=== PATIENT | male | born 1950 | race Caucasian/White ===

== ENCOUNTER → 2018-03-07 | Outpatient (CLI) | payer MEDICARE, OTHER ==
[~2018-03-07] MED LIST: 5-HY50CA3 PO; ALLERGY INJECTIONS; ASCO-182 PO; AZIT-1 PO; B CO PO; CITA-128 PO; DIAZIDE PO; FEXO180T74 PO; FLAX100042 PO; HYD10 PO; HYDR-317 PO; HYDR12.561 PO; INDO-1 PO; INDO50CA92 PO; KET10 PO; LAMO50TA PO; LEV137 PO; LEVO150T72 PO; MAGN250T26 PO; METH4TAB66 PO; MULT-1 PO; OXYGEN INH; PAN40 PO; PER PO; POTA2.5T7 PO; POTA75TA PO; PSYP PO; TES5T TD; TES75PMPPT TD; TEST2.5G6 TD; TRIA1CAP86 PO; [UNRECOGNIZED DRUG - CODE] PO; [UNRECOGNIZED DRUG - CODE] PO
== END ==
LOC: RESP 20:02
PROVIDERS: ATTEND Family Medicine
DX: G47.33 Obstructive sleep apnea (adult) (pediatric) (principal); G47.61 Periodic limb movement disorder; G47.36 Sleep related hypoventilation in conditions classified elsewhere; E66.9 Obesity, unspecified

== ENCOUNTER 2018-04-21 14:25 | Outpatient (RCR) | payer MEDICARE, OTHER ==
[~2018-04-21 14:25] MED LIST changes: +INDO-23 PO; -INDO50CA92 PO
[2018-04-21 14:54] VITALS: BP 132/63
== END 2018-05-13 11:17 | disposition home or self-care (01) ==
LOC: SPU 14:25
DX: E29.1 Testicular hypofunction (principal)
CPT/HCPCS: 85014; 99195

== ENCOUNTER → 2018-10-12 | Outpatient (CLI) | payer MEDICARE, OTHER ==
[~2018-10-12] MED LIST changes: +FERR325T24 PO
== END ==
LOC: LAB 13:51
PROVIDERS: ATTEND Urology
DX: Z00.00 Encounter for general adult medical examination without abnormal findings (principal); N40.1 Benign prostatic hyperplasia with lower urinary tract symptoms
CPT/HCPCS: 36415; 84153

== ENCOUNTER 2018-11-19 11:03 | Inpatient (IN) | payer MEDICARE, OTHER ==
[~2018-11-19] VITALS: Ht 177.8 cm; Wt 121.6 kg
[2018-11-19] MEDS ORDERED: methylPREDNIS SUCC 125 MG/2ML IVP ONE (11:15)
[2018-11-19] MEDS ORDERED: FAMOTIDINE(*) 20MG/50ML PREMIX 50 ML IVPB ONE (11:15)
[2018-11-19] MEDS ORDERED: diphenhydrAMINE 50 MG/ML VIAL IVP ONE (11:15)
[2018-11-19] MEDS ORDERED: EPINEPHrine 0.3 MG SYR IM ONLY ONE (11:15)
--- NOTE | 2018-11-19 11:21 | ER Report ---
History and Physical Time Seen By MD: 11:10 Hx. of Stated Complaint: PATIENT REPORTS SWELLING OF THE LIPS AND TONGUE THAT STARTED THIS MORNING. [facility] AND WAS TOLD TO COME HERE. HAS SOME TROUBLE BREATHING AND SWALLOWING. HPI/ROS CHIEF COMPLAINT: Angioedema facial swelling HISTORY OF PRESENT ILLNESS: 68-year-old male comes in the emergency department sent here from urgent care with what appears to either be an acute allergic reaction or angioedema. Patient is had numerous episodes similar in the past month he's had 4 separate episodes but he said this is significantly worse. Patient is able to swallow saliva at this time says is able to breathe okay but is having marked swelling of the oral mucosa and around the tongue and the pharyngeal area. Patient states that he's been through allergy testing with no obvious or apparent allergic source. Patient states that he went to the primary care office after the initial incident incident and subsequently been having follow-up in with little to no benefit has been seen by ENT. On arrival to the emergency department he's had obvious swelling of the oral mucosal lips and the pharyngeal area primarily in the lips and oral mucosa consistent with a probable angioedema. Patient has no additional complaints this time REVIEW OF SYSTEMS: Respiratory: No cough, no dyspnea. Cardiovascular: No chest pain, no palpitations. Gastrointestinal: No vomiting, no abdominal pain. Musculoskeletal: No back pain. Remainder of the 14 system rev: Yes Allergies: Coded Allergies: Iodinated Contrast Media - IV Dye (Unverified Allergy, Severe, SWELLING, EXTREME HAYFEVER SYMPTOMS, 09/16/16) codeine (Verified Allergy, Severe, 09/16/16) homeopathic drugs (Verified Allergy, Intermediate, 09/16/16) ofloxacin (Verified Allergy, Mild, DIZZY, 09/16/16) Uncoded Allergies: hayfever (Allergy, Intermediate, UNKNOWN, 03/19/12) Home Meds Reported Medications Testosterone (ANDROGEL) 75 Gm Gel, 75 GM TD, GEL 07/20/16 Magnesium (MAGNESIUM) 250 Mg Tablet, 500 MG PO DAILY 04/19/14 Multivitamin W/Iron, Minerals (MULTIVITAMINS WITH IRON) 1 Each Tab.chew, 1 EACH PO DAILY, TAB.CHEW 04/19/14 Ascorbic Acid (VITAMIN C) 500 Mg Tablet, 500 MG PO DAILY 04/19/14 Hydrochlorothiazide (HYDROCHLOROTHIAZIDE) 12.5 Mg Tablet, 1 TAB PO QDAY TAKE ONE TABLET BY MOUTH EVERY DAY 04/19/14 Lamotrigine (LAMOTRIGINE) 50 Mg Tab.er.24, 100 MG PO QDAY 12/08/12 Citalopram Hydrobromide (Citalopram Hbr) 20 Mg Tablet, 30 MG PO QDAY 12/07/12 Levothyroxine Sodium (Synthroid/Levothroid) 0.137 Mg Tab, 0.137 MG PO QDAY 12/07/12 Oxygen (Oxygen) 2 L Inha, 2 L INH QHS, 0 Refills WEARS WITH CPAP AT 8CM PRESSURE AT NOC 01/02/10 Hydrocortisone (Hydrocortisone) 10 Mg Tablet, 30 MG PO QAM, 0 Refills 01/02/10 Pantoprazole Sod (Protonix) 40 Mg Tabec, 40 MG PO QDAY, 0 Refills 01/27/09 Discontinued Reported Medications Ferrous Sulfate (IRON) Unknown Strength Tablet, PO 05/21/18 Reviewed Nurses Notes: Yes Old Medical Records Reviewed: Yes Hx Smoking: Yes (7 year stopped in 1984) Smoking Status: Former Smoker Exposure to Second Hand Smoke?: No Hx Substance Use Disorder: No Hx Alcohol Use: No Constitutional Vital Sign - Last 24 Hours 11/19/18 11/19/18 11/19/18 11/19/18 11:08 11:09 11:15 11:18 Pulse 95 92 Resp 16 14 B/P (MAP) 125/79 125/79 (94) 108/46 (66) Pulse Ox 92 89 O2 Delivery Room Air 11/19/18 11/19/18 11:27 11:30 B/P (MAP) 111/56 (74) O2 Flow Rate 2.0 Physical Exam General Appearance: [The patient is alert, has no immediate need for airway protection and no current signs of toxicity.] Able to protect his airway but obvious swelling on the oral mucosa Eyes: Pupils equal and round no injection. Respiratory: Chest is non tender, lungs are clear to auscultation. Cardiac: regular rate and rhythm [ ] Gastrointestinal: Abdomen is soft and non tender, no masses, bowel sounds normal. Musculoskeletal: Neck: Neck is supple and non tender. Extremities have full range of motion and are non tender. Skin: Facial swelling edema left greater than right premolar on the oropharynx no the nasolabial fold area swelling of the tongue is also noted. [ ] DIFFERENTIAL DIAGNOSIS: After history and physical exam differential diagnosis was considered for acute allergic reaction versus angioedema Medical Decision Making Data Points Result Diagram: 11/19/18 1110 11/19/18 1110 Laboratory Hematology Test 11/19/18 11:10 Red Blood Count 6.06 M/uL (4.00-5.60) Mean Corpuscular Volume 89.0 fL (80.0-96.0) Mean Corpuscular Hemoglobin 28.4 pg (26.0-33.0) Mean Corpuscular Hemoglobin Concent 31.9 g/dL (32.0-36.0) Red Cell Distribution Width 15.6 % (11.5-14.5) Mean Platelet Volume 7.5 fL (7.2-11.1) Neutrophils (%) (Auto) 69.0 % (39.4-72.5) Lymphocytes (%) (Auto) 23.5 % (17.6-49.6) Monocytes (%) (Auto) 6.0 % (4.1-12.4) Eosinophils (%) (Auto) 1.0 % (0.4-6.7) Basophils (%) (Auto) 0.5 % (0.3-1.4) Nucleated RBC Relative Count (auto) 0.1 /100WBC Neutrophils # (Auto) 8.0 K/uL (2.0-7.4) Lymphocytes # (Auto) 2.7 K/uL (1.3-3.6) Monocytes # (Auto) 0.7 K/uL (0.3-1.0) Eosinophils # (Auto) 0.1 K/uL (0.0-0.5) Basophils # (Auto) 0.1 K/uL (0.0-0.1) Nucleated RBC Absolute Count (auto) 0.01 K/uL Prothrombin Time 12.9 seconds (12.0-14.4) Prothromb Time International Ratio 0.97 Activated Partial Thromboplast Time 32 seconds (23-35) Sodium Level 140 mmol/L (137-145) Potassium Level 3.4 mmol/L (3.5-5.0) Chloride Level 106 mmol/L (98-107) Carbon Dioxide Level 33 mmol/L (22-30) Blood Urea Nitrogen 15 mg/dl (9-21) Creatinine 1.10 mg/dl (0.66-1.25) Glomerular Filtration Rate Calc > 60.0 Random Glucose 94 mg/dl (75-110) Calcium Level 8.9 mg/dl (8.4-10.2) Total Bilirubin 0.5 mg/dl (0.2-1.3) Aspartate Amino Transf (AST/SGOT) 36 U/L (0-35) Alanine Aminotransferase (ALT/SGPT) 45 U/L (0-56) Alkaline Phosphatase 74 U/L (0-126) Total Protein 6.7 g/dl (6.3-8.2) Albumin 3.6 g/dl (3.5-5.0) Chemistry Test 11/19/18 11:10 White Blood Count 11.6 k/uL (4.5-11.0) Red Blood Count 6.06 M/uL (4.00-5.60) Hemoglobin 17.2 g/dL (14.0-18.0) Hematocrit 53.9 % (42.0-52.0) Mean Corpuscular Volume 89.0 fL (80.0-96.0) Mean Corpuscular Hemoglobin 28.4 pg (26.0-33.0) Mean Corpuscular Hemoglobin Concent 31.9 g/dL (32.0-36.0) Red Cell Distribution Width 15.6 % (11.5-14.5) Platelet Count 297 K/uL (150-450) Mean Platelet Volume 7.5 fL (7.2-11.1) Neutrophils (%) (Auto) 69.0 % (39.4-72.5) Lymphocytes (%) (Auto) 23.5 % (17.6-49.6) Monocytes (%) (Auto) 6.0 % (4.1-12.4) Eosinophils (%) (Auto) 1.0 % (0.4-6.7) Basophils (%) (Auto) 0.5 % (0.3-1.4) Nucleated RBC Relative Count (auto) 0.1 /100WBC Neutrophils # (Auto) 8.0 K/uL (2.0-7.4) Lymphocytes # (Auto) 2.7 K/uL (1.3-3.6) Monocytes # (Auto) 0.7 K/uL (0.3-1.0) Eosinophils # (Auto) 0.1 K/uL (0.0-0.5) Basophils # (Auto) 0.1 K/uL (0.0-0.1) Nucleated RBC Absolute Count (auto) 0.01 K/uL Prothrombin Time 12.9 seconds (12.0-14.4) Prothromb Time International Ratio 0.97 Activated Partial Thromboplast Time 32 seconds (23-35) Glomerular Filtration Rate Calc > 60.0 Calcium Level 8.9 mg/dl (8.4-10.2) Total Bilirubin 0.5 mg/dl (0.2-1.3) Aspartate Amino Transf (AST/SGOT) 36 U/L (0-35) Alanine Aminotransferase (ALT/SGPT) 45 U/L (0-56) Alkaline Phosphatase 74 U/L (0-126) Total Protein 6.7 g/dl (6.3-8.2) Albumin 3.6 g/dl (3.5-5.0) Coagulation Test 11/19/18 11:10 Prothrombin Time 12.9 seconds Prothromb Time International Ratio 0.97 Activated Partial Thromboplast Time 32 seconds ED Course/Re-evaluation ED Course Medical management 68-year-old male comes emergency Department today with a complaint of potential angioedema was treated with a multitude of medications was some moderate him significant improvement airway was never compromised he responded well to therapy FFP has been ordered is patient will be given en route to the floor and admitted today to our hospitalist service with a diagnosis of presumed urticaria angioedema Decision to Disposition Date: Nov 19, 2018 Decision to Disposition Time: 13:15 Depart Departure Latest Vital Signs Vital Signs Date Time Temp Pulse Resp B/P (MAP) Pulse Ox O2 Delivery O2 Flow Rate FiO2 11/19/18 11:30 111/56 (74) 11/19/18 11:27 2.0 11/19/18 11:18 92 14 89 11/19/18 11:08 Room Air Impression: Primary Impression: Hereditary angioedema Condition: Improved Disposition: Admitted from ER Referrals: DESTINEE MORENO DO (PCP) FRANK BERNARDO MD Nov 19, 2018 11:21
[2018-11-19] MEDS ORDERED: DANAZOL 200 MG CAPSULE PO ONE (11:25)
[2018-11-19] MEDS ORDERED: NS(*) 0.9% 500 ML BAG 500 ML IV ONE (11:45)
[2018-11-19] MEDS ORDERED: NS(*) 0.9% 1000 ML BAG 1,000 ML IV ONE (11:45)
[2018-11-19 11:59] LABS: PLATELET COUNT, AUTOMATED 297 K/uL (150-450)
[2018-11-19 12:05] LABS: INR 0.97
--- NOTE | 2018-11-19 14:27 | History & Physical ---
History of Present Illness History of Present Illness 68yo male with a h/o allergic rhinosinusitis and transfrontal craniotomy who came to the ER for lip and neck swelling. This morning he woke up with severe lip and neck swelling. He felt like there was something in the back of his throat. He denies tongue swelling, difficulty with breathing or difficulty with swallowing. He went to Dr. Moreno's office and they referred him to the ER. He reports that for the last couple of months he has been getting intermittent lip swelling about every 2 weeks. He will wake up with it and then it tends to resolve over a day or so. He did have tongue swelling about a month ago along with the lip swelling. He has not seen any provider for this. He had his allergy shot formulation changed about 1.5 weeks ago. He last received his shot yesterday. He is not on any new prescription medications. He has been taking some stinging nettle over the last couple of weeks. He hasn't noticed any alleviating or aggravating factors for the lip swelling. In the ER, he received epinephrine, Benadryl, Danazol, famotidine, and Methylprednisolone. The patient reports that the sensation of something in his throat feels better, but otherwise thinks the swelling is unchanged. The ER provider reports that the facial swelling is significantly improved. History Problems: (1) HTN (hypertension) Status: Chronic (2) Hypothyroid (3) GERD (gastroesophageal reflux disease) (4) VALE (obstructive sleep apnea) (5) Allergic rhinosinusitis Status: Chronic (6) History of craniotomy (7) History of eye surgery (8) History of acoustic neuroma Status: Chronic (9) History of pituitary tumor Status: Chronic Home Meds Reported Medications Testosterone (ANDROGEL) 75 Gm Gel, 75 GM TD, GEL 07/20/16 Magnesium (MAGNESIUM) 250 Mg Tablet, 500 MG PO DAILY 04/19/14 Multivitamin W/Iron, Minerals (MULTIVITAMINS WITH IRON) 1 Each Tab.chew, 1 EACH PO DAILY, TAB.CHEW 04/19/14 Ascorbic Acid (VITAMIN C) 500 Mg Tablet, 500 MG PO DAILY 04/19/14 Hydrochlorothiazide (HYDROCHLOROTHIAZIDE) 12.5 Mg Tablet, 1 TAB PO QDAY TAKE ONE TABLET BY MOUTH EVERY DAY 04/19/14 Lamotrigine (LAMOTRIGINE) 50 Mg Tab.er.24, 100 MG PO QDAY 12/08/12 Citalopram Hydrobromide (Citalopram Hbr) 20 Mg Tablet, 30 MG PO QDAY 12/07/12 Levothyroxine Sodium (Synthroid/Levothroid) 0.137 Mg Tab, 0.137 MG PO QDAY 12/07/12 Oxygen (Oxygen) 2 L Inha, 2 L INH QHS, 0 Refills WEARS WITH CPAP AT 8CM PRESSURE AT NOC 01/02/10 Hydrocortisone (Hydrocortisone) 10 Mg Tablet, 30 MG PO QAM, 0 Refills 01/02/10 Pantoprazole Sod (Protonix) 40 Mg Tabec, 40 MG PO QDAY, 0 Refills 01/27/09 Discontinued Reported Medications Ferrous Sulfate (IRON) Unknown Strength Tablet, PO 05/21/18 Allergies: Coded Allergies: Iodinated Contrast Media - IV Dye (Unverified Allergy, Severe, SWELLING, EXTREME HAYFEVER SYMPTOMS, 09/16/16) codeine (Verified Allergy, Severe, 09/16/16) homeopathic drugs (Verified Allergy, Intermediate, 09/16/16) ofloxacin (Verified Allergy, Mild, DIZZY, 09/16/16) Uncoded Allergies: hayfever (Allergy, Intermediate, UNKNOWN, 03/19/12) Patient History: FH: Parkinson's disease FATHER, FH: heart attack BROTHER OR SISTER FH: hypertension MOTHER FH: prostate cancer FATHER, FH: thyroid disease BROTHER OR SISTER Other Social/Family Hx Lives alone. No current tobacco use, but quit in 1984. No alcohol use. Hx Smoking: Yes (7 year stopped in 1984) Smoking Status: Former Smoker Exposure to Second Hand Smoke?: No Caffeine/Cups Per Day: DECAF Hx Alcohol Use: No Review of Systems All Systems Reviewed/Normal: Yes, Except as Noted Exam Vital Signs Vital Signs Date Time Temp Pulse Resp B/P (MAP) Pulse Ox O2 Delivery O2 Flow Rate FiO2 11/19/18 11:30 111/56 (74) 11/19/18 11:27 2.0 11/19/18 11:18 92 14 89 11/19/18 11:08 Room Air General Appearance: Alert, Awake, No Acute Distress Neuro: Other (Knows where he is and why he is here. ) Eyes: PERRLA ENT: Moist Mucous Membranes, Oropharynx Clear, Posterior Pharynx Clear, Other (Tongue might be mildly enlarged. Lips swollen (R>L). ) Neck: Other (Neck appears swollen symmetrically) Cardiovascular: Regular Rate and Rhythm Respiratory: Clear to Auscultation Extremities: No Edema Integumentary: No Jaundice, No Cyanosis Medical Decision Making Data Points Result Diagram: 11/19/18 11111/19/18 111 Item Value Date Time Neutrophils (%) (Auto) 69.0 % 11/19/18 1110 Lymphocytes (%) (Auto) 23.5 % 11/19/18 1110 Monocytes (%) (Auto) 6.0 % 11/19/18 1110 Eosinophils (%) (Auto) 1.0 % 11/19/18 1110 Basophils (%) (Auto) 0.5 % 11/19/18 111 Nucleated RBC Relative Count (auto) 0.1 /100WBC 11/19/18 1110 Prothromb Time International Ratio 0.97 11/19/18 111 Total Bilirubin 0.5 mg/dl 11/19/18 1110 Aspartate Amino Transf (AST/SGOT) 36 U/L H 11/19/18 1110 Alanine Aminotransferase (ALT/SGPT) 45 U/L 11/19/18 1110 Alkaline Phosphatase 74 U/L 11/19/18 1110 Assessment and Plan Problems: (1) Angioedema Status: Acute Assessment & Plan: He presented with lip swelling R>L and neck swelling that started the morning of admission. He has had q2wk episodes for a couple of months. He has not seen any provider for this. His allergy shot formulation was changed about 2 weeks ago and is now getting escalating therapy. Last shot was the day before admission. He received danazol, epinephrine, Benadryl, Methylprednisolone, and Pepcid in the ER with improvement of symptoms. He denies any throat swelling or tongue swelling currently. He had an episode of tongue swelling about a month ago. A C4 has been added to previous tests. Will check CRP and ESR. He will be started on scheduled Benadryl in the evening, Zyrtec in the morning, Pepcid twice daily and continued on his usual hydrocortisone. He will watched closely for worsening of symptoms. If he does well, then he will likely need to stop his allergy shots for now and have f/u with an service and repair supervisor to help discern if this is mast cell related vs acquired/inhe rited. (2) Allergic rhinosinusitis Status: Chronic Assessment & Plan: On allergy shots. See above. (3) History of pituitary tumor Status: Chronic Assessment & Plan: He had resection in 1970. Continue chronic hydrocortisone. He is also on testosterone gel, but will hold for now. (4) HTN (hypertension) Status: Chronic Assessment & Plan: Continue chronic HCTZ with parameters. (5) History of acoustic neuroma Status: Chronic Assessment & Plan: He had a surgical resection and possibly chemotherapy and radiation. Copies to: PRIMITIVO BENAVIDES MD; DESTINEE MORENO DO ; Venous Thromboembolism Antithrombotics Is Pt On Any Antithrombotics?: No Exam Sepsis Risk: No Definite Risk ADRIEL ENCINAS MD Nov 19, 2018 14:26
[2018-11-19 14:37] VITALS: BP 126/73
[2018-11-19] MEDS ORDERED: OXYGENHOME INH (14:56)
[2018-11-19] MEDS ORDERED: HYDR20TA8 PO (14:56)
[2018-11-19] MEDS ORDERED: TEST60GE (14:56)
[2018-11-19 19:44] VITALS: BP 123/72
[2018-11-19] MEDS: FAMOTIDINE 20 MG TAB PO SCH (20:31)
[2018-11-19] MEDS ORDERED: HYDROCORTISONE 10 MG TAB PO SCH (21:00)
[2018-11-19] MEDS ORDERED: diphenhydrAMINE 25 MG CAP PO SCH (21:00)
[2018-11-19] MEDS ORDERED: HYPROMELLOSE 0.4% LUB 15ML BTL OD PRN (22:25)
[2018-11-19 23:40] VITALS: BP 123/71
[2018-11-20 05:51] VITALS: BP 123/75
[2018-11-20] MEDS ORDERED: LEVOTHYROXINE SOD 0.137 MG TAB PO SCH (06:00)
[2018-11-20 06:04] LABS: PLATELET COUNT, AUTOMATED 244 K/uL (150-450)
[2018-11-20] MEDS ORDERED: HYDROCORTISONE 10 MG TAB PO SCH (09:00)
[2018-11-20] MEDS ORDERED: HYDROCHLOROTHIAZIDE 25 MG TAB PO SCH (09:00)
[2018-11-20] MEDS ORDERED: lamoTRIgine 100 MG TAB PO SCH (09:00)
[2018-11-20] MEDS ORDERED: PANTOPRAZOLE SOD 40 MG TABEC PO SCH (09:00)
[2018-11-20] MEDS ORDERED: CETIRIZINE HCL 10 MG TAB PO SCH (09:00)
[2018-11-20] MEDS ORDERED: CITALOPRAM HYDROBROM 20 MG TAB PO SCH (09:00)
[2018-11-20] MEDS: FAMOTIDINE 20 MG TAB PO SCH (09:33)
[2018-11-20 09:39] VITALS: BP 120/60
[2018-11-20] MEDS ORDERED: CHOL200022 PO (10:33)
[2018-11-20] MEDS ORDERED: TEST5GEL7 TOP (10:37)
[2018-11-20] MEDS ORDERED: LAMO100T52 PO (10:37)
[2018-11-20] MEDS ORDERED: DEXT1DRO16 OD (10:38)
[2018-11-20] MEDS ORDERED: [UNRECOGNIZED DRUG - CODE] OD (10:38)
[2018-11-20] MEDS ORDERED: HYDR20TA8 PO (10:51)
[2018-11-20] MEDS ORDERED: CETI-154 PO (10:51)
[2018-11-20] MEDS ORDERED: FAMO-67 PO (10:51)
--- NOTE | 2018-11-20 11:07 | Hospitalist Depart ---
Discharge Summary Reason for Hosp/Final Diag: (1) Angioedema Status: Acute Hospital Course & Plan: He presented with lip swelling R>L and neck swelling that started the morning of admission. He has had a few episodes over the last couple of months. He has not seen any provider for this. His allergy shot formulation was changed about 2 weeks ago and is now getting escalating therapy. His last allergy shot was the day before admission. He received danazol, epinephrine, Benadryl, Methylprednisolone, and Pepcid in the ER with improvement of symptoms. His symptoms had completely resolved by the following morning. A C4 has been added to previous tests (still pending at time of discharge). His CRP was slightly elevated and ESR was normal. He will be discharged on Zyrtec and Pepcid as well as slightly increased dose in his Hydrocortisone (20mg BID). He will watch closely for any worsening of symptoms and return to ER if necessary. For now, we will have him stop his allergy shots and follow up with an antenna machine operator in the very near future. He will follow up closely with his primary care provider (Dr. Moreno) as well. (2) Allergic rhinosinusitis Status: Chronic Hospital Course & Plan: Currently on allergy shots (which will be held for no w). See above. (3) History of pituitary tumor Status: Chronic Hospital Course & Plan: He had resection in 1970. Continue chronic hyd rocortisone. He is also on testosterone gel. (4) History of acoustic neuroma Status: Chronic Hospital Course & Plan: He had a previous surgical resection and possibly radiation. (5) HTN (hypertension) Status: Chronic Hospital Course & Plan: Continue chronic HCTZ. Departure Weight (Pounds): 268 Result Diagram: 11/20/1845 11/20/18544 Item Value Date Time White Blood Count 11.6 k/uL H 11/19/18 1110 Platelet Count 297 K/uL 11/19/18 1110 Potassium Level 3.4 mmol/L L 11/19/18 1110 Sodium Level 140 mmol/L 11/19/18 1110 Chloride Level 106 mmol/L 11/19/18 1110 Carbon Dioxide Level 33 mmol/L H 11/19/18 1110 Blood Urea Nitrogen 15 mg/dl 11/19/18 1110 Creatinine 1.10 mg/dl 11/19/18 1110 Random Glucose 94 mg/dl 11/19/18 1110 Calcium Level 8.9 mg/dl 11/19/18 1110 Total Bilirubin 0.5 mg/dl 11/19/18 1110 Aspartate Amino Transf (AST/SGOT) 36 U/L H 11/19/18 1110 Alanine Aminotransferase (ALT/SGPT) 45 U/L 11/19/18 1110 Alkaline Phosphatase 74 U/L 11/19/18 1110 Total Protein 6.7 g/dl 11/19/18 1110 Albumin 3.6 g/dl 11/19/18 1110 C-Reactive Protein 3.4 mg/dl H 11/20/18 0545 Prothrombin Time 12.9 seconds 11/19/18 1110 Activated Partial Thromboplast Time 32 seconds 11/19/18 1110 Prothromb Time International Ratio 0.97 11/19/18 1110 Condition: Improved Discharge: Home, Self Care Time Spent: > 30 min Discharge Instructions Home Meds Active Scripts Famotidine (FAMOTIDINE) 20 Mg Tablet, 20 MG PO BID for 14 Days, #28 TAB 1 Refill Prov:PHUONG GRAY MD 11/20/18 Cetirizine Hcl (ALL DAY ALLERGY) 10 Mg Tablet, 10 MG PO QDAY for 14 Days, #14 TAB 1 Refill Prov:PHUONG GRAY MD 11/20/18 Hydrocortisone (HYDROCORTISONE) 20 Mg Tablet, 20 MG PO BID for 30 Days, #60 TAB 1 Refill Take one tablet twice a day until follow up with primary care provider or antenna machine operator. May then resume 1 Tablet in AM and 1/2 tablet in afternoon if they are in agreement. Prov:PHUONG GRAY MD 11/20/18 Reported Medications Mineral Oil/Petrolatum,White (ARTIFICIAL TEARS EYE OINT) 3.5 Gm Oint...g., 3.5 GM OD QPM 11/20/18 Dextran 70/Hypromellose/Pf (ARTIFICIAL TEARS DROPS) 1 Each Droperette, 1 DROP OD QAM 11/20/18 Testosterone (Testosterone) 5 Gm Gel.packet, 10 GM TOP QDAY 2 pumps each thigh everyday 11/20/18 Lamotrigine (LAMOTRIGINE) 100 Mg Tablet, 100 MG PO QDAY 11/20/18 Cholecalciferol (Vitamin D3) (Vitamin D-3) 2,000 Unit Tablet, 2000 MG PO QDAY 11/20/18 Oxygen (OXYGEN) Inha, 3 L INH, L 3 L into CPAP at night 11/19/18 Magnesium (MAGNESIUM) 250 Mg Tablet, 500 MG PO DAILY 04/19/14 Multivitamin W/Iron, Minerals (MULTIVITAMINS WITH IRON) 1 Each Tab.chew, 1 EACH PO DAILY, TAB.CHEW 04/19/14 Ascorbic Acid (VITAMIN C) 500 Mg Tablet, 500 MG PO DAILY 04/19/14 Hydrochlorothiazide (HYDROCHLOROTHIAZIDE) 12.5 Mg Tablet, 1 TAB PO QDAY TAKE ONE TABLET BY MOUTH EVERY DAY 04/19/14 Citalopram Hydrobromide (Citalopram Hbr) 20 Mg Tablet, 20 MG PO QDAY 12/07/12 Levothyroxine Sodium (Synthroid/Levothroid) 0.137 Mg Tab, 0.137 MG PO QDAY 12/07/12 Pantoprazole Sod (Protonix) 40 Mg Tabec, 40 MG PO QDAY, 0 Refills 01/27/09 Discontinued Reported Medications Testosterone (Testosterone) 60 Gm Gel..radioisotope production operator Apply two pumps to each thight every morning 11/19/18 Lamotrigine (LAMOTRIGINE) 50 Mg Tab.er.24, 100 MG PO QDAY 12/08/12 Ferrous Sulfate (IRON) Unknown Strength Tablet, PO 05/21/18 Testosterone (ANDROGEL) 75 Gm Gel, 75 GM TD, GEL 07/20/16 Oxygen (Oxygen) 2 L Inha, 2 L INH QHS, 0 Refills WEARS WITH CPAP AT 8CM PRESSURE AT [facility] 01/02/10 Hydrocortisone (Hydrocortisone) 10 Mg Tablet, 30 MG PO QAM, 0 Refills 01/02/10 Follow up Referrals: Family [facility] @ [facility] with DESTINEE MORENO DO Diet: Regular Activity: As Tolerated Special Instructions: Follow up with Dr. Moreno in next 1-2 weeks or sooner if any problems. Follow up with an antenna machine operator in next 1-2 weeks. Return to [facility] ER if any problems. Copies to: DESTINEE MORENO DO ; Venous Thromboembolism Antithrombotics Is Pt On Any Antithrombotics?: No PHUONG GRAY MD Nov 20, 2018 11:07
== END 2018-11-20 11:50 | disposition home or self-care (01) | DRG 916 ==
LOC: ER 11:11 → MED 13:35
PROVIDERS: ADMIT Internal Medicine; ATTEND Internal Medicine
PROC: 30233K1 Transfusion of Nonautologous Frozen Plasma into Peripheral Vein, Percutaneous Approach (ICD-10-PCS; principal; 2018-11-19)
DX: T78.3XXA Angioneurotic edema, initial encounter (principal); I10 Essential (primary) hypertension; G47.33 Obstructive sleep apnea (adult) (pediatric); T78.8XXA Other adverse effects, not elsewhere classified, initial encounter; K21.9 Gastro-esophageal reflux disease without esophagitis; E03.9 Hypothyroidism, unspecified; J30.9 Allergic rhinitis, unspecified; Z88.8 Allergy status to other drugs, medicaments and biological substances; Z87.891 Personal history of nicotine dependence
CPT/HCPCS: 36415; 82040; 82247; 82310; 82374; 82435; 82565; 82947; 84075; 84132; 84155; 84295; 84450; 84460; 84520; 85025; 85610; 85651; 85730; 86140; 86160; 86850; 86900; 86901; 96361; 96372; 96374; 96375; 99285; J0171; J1200; J2930; J3490; J7030; J7040; P9059; Q0163

== ENCOUNTER → 2018-12-22 | Outpatient (CLI) | payer MEDICARE, OTHER ==
[~2018-12-22] MED LIST changes: +CETI-154 PO; +CHOL200022 PO; +DEXT1DRO16 OD; +FAMO-67 PO; +HYDR20TA8 PO; +LAMO100T52 PO; +OXYGENHOME INH; +TEST5GEL7 TOP; +TEST60GE; +[UNRECOGNIZED DRUG - CODE] OD
== END ==
LOC: LAB 08:12
PROVIDERS: ATTEND Internal Medicine Endocrinology, Diabetes & Metabolism
DX: E23.0 Hypopituitarism (principal)
CPT/HCPCS: 36415; 84270; 84403; 85027

== ENCOUNTER 2019-02-13 07:00 | Outpatient (RCR) | payer MEDICARE, OTHER ==
--- NOTE | 2018-12-12 07:14 | PT INITIAL EVALUATION ---
MEDICAL DIAGNOSIS: Unsteadiness on feet TREATMENT DIAGNOSIS: Abnormality of gait, History of falls, Decreased Balance DATE OF ONSET: 12/12/18 SUBJECTIVE: Noah is a 68 year old male presenting to physical therapy following acute on chronic decline in balance and stability with ambulation and ADL's. Noah reports that recently he has fallen several times including falling off a chair while seated and while simply standing trying to put on a shoe. Some of his recent falls have required use of EpiPen following with unknown reaction occurring. 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 Secondary to history pt reports that much of the neurological pathways of his right inner ear is no longer functioning. Pt reports that he is especially unsteady on uneven terrain and narrow pathways. Pt has done PT year prior and showed improvement following. Pt reports no dizziness, vertigo or pain at this time. REHAB PROBLEM LIST: Decreased Strength Impaired Transfers Decreased Endurance Decreased Balance Decreased Function Decreased ADL's Decreased Mobility Decreased Gait PREVIOUS MEDICAL HISTORY: See EMR OCCUPATION: Retired professor and researcher at OBJECTIVE: Posture: Forward head posture with slight forward trunk lean with ambulation. Strength: LE MMT: Hip: flexion: B 4/5, ext: B 4/5, abd: B 4+/5, add: B 4+/5, knee: ext: B 4/5, flexion: B 4+/5, DF: B 5/5, PF: L 4+/5, R 5-/5. Gait: Functional Gait Assessment (FGA): Balance: 4 Stage Balance Test: Eyes Open (EO): tandem: L 30 sec, R 13 sec, SLS: L 8 sec, R 7 sec. Eyes Closed (EC): tandem: L 3 sec, R 2 sec Other Objective Findings: ASSESSMENT: Noah shows signs and symptoms consistent with decreased balance and abnormality of gait. Physical therapy is indicated for this patient to improve functional mobility with ADL's and community ambulation. Short Term Goals In 3 weeks pt will be able to photographic developer and printer tandem stance B EO at 30 seconds for improved static balance with ADL's. In 6 weeks pt will be able to stand SLS EO on B LE for 10 seconds for ADL's such as putting on shoes or pants and daily ambulation. In 6 weeks pt will improve LE strength as tested by MMT to 4+/5 for all major muscle groups for improved function with ADL's. In 6 weeks pt will improve FGA score to 20/30 for improved function with ADL's. In 6 weeks pt will be able to walk up and down hills, on uneven terrain and tilted sidewalks without LOB episodes for improved function with ADL's and community ambulation. Patient's Goals Be able to ride bike in the summer and hike and walk around town without falling. PLAN: Patient to be seen for Manual Therapy/STM/MET Strengthening/condition Ice/Heat Range of Motion Spinal Stabilization Ultrasound Stretching Iontophoresis Neuromuscular Re-ed Closed Chain Program Electrical Stim Posture/Body mechanics Gait Trg/Balance Trg Biofeedback Home Exercise Program Mech./Manual Traction Therapeutic Activities Pelvic Floor 2x/Week for 6 Weeks If you have any questions, comments, or concerns about this report or plan, please contact me at . Thank you, Carla Edouard, PT, DPT, CLT RUD
--- NOTE | 2019-01-21 15:57 | PT PLAN OF CARE ---
Physician: FELICITY Rios Patient is being seen: 2-3x/Week Therapist: Carla Edouard, PT, DPT, CLT Medical Diagnosis: Unsteadiness on feet Treatment Diagnosis: Abnormality of gait, History of falls, Decreased Balance Date of Onset: 12/12/18 Date of Initial Evaluation: 12/11/18 Date patient was last seen: 01/20/19 Number of treatments: 10 Number of cancellations/No shows: 1 INTERVENTIONS: Manual Therapy/STM/MET Strengthening/condition Ice/Heat Range of Motion Spinal Stabilization Ultrasound Stretching Iontophoresis Neuromuscular Re-ed Closed Chain Program Electrical Stim Posture/Body mechanics Gait Trg/Balance Trg Biofeedback Home Exercise Program Mech./Manual Traction Therapeutic Activities Pelvic Floor GOALS: In 3 weeks pt will be able to stretching press operator tandem stance B EO at 30 seconds for improved static balance with ADL's. MET In 6 weeks pt will be able to stand SLS EO on B LE for 10 seconds for ADL's such as putting on shoes or pants and daily ambulation. In 6 weeks pt will improve LE strength as tested by MMT to 4+/5 for all major muscle groups for improved function with ADL's. MET In 6 weeks pt will improve FGA score to 20/30 for improved function with ADL's. MET In 6 weeks pt will be able to walk up and down hills, on uneven terrain and tilted sidewalks without LOB episodes for improved function with ADL's and community ambulation. PATIENT'S GOAL: Be able to ride bike in the summer and hike and walk around town without falling. Status of Patient's Goals: 3/5 MET, 2/5 In Progress Patient Compliance: Good Prognosis: Good Reasons for continuing therapy: Noah continues to show progress with mobility and strength. Pt is able to perform various gait tasks with improved balance with slightly slowed speed. Pt remains to have deficits in balance including SLS occasional quick stepping with LOB resulting in further LOB with poor foot stability. Further PT to continue to focus on SLS balance for safety with ambulation on unstable surfaces and uneven terrain. Posture: Forward head posture with slight forward trunk lean with ambulation. Strength: LE MMT: Hip: flexion: B 5-/5, ext: B 4+/5, abd: B 5-/5, add: B 4+/5, knee: ext: B 4+/5, flexion: B 4+/5, DF: B 5/5, PF: L 5/5, R 5/5. Gait: Functional Gait Assessment (FGA): Balance: 4 Stage Balance Test: Eyes Open (EO): tandem: L 30 sec, R 30 sec, SLS: L 8 sec, R 7 sec. Eyes Closed (EC): tandem: L 3 sec, R 2 sec If you have any questions or concerns, please feel free to contact me at [phone]. Thank you, Carla Edouard, PT, DPT, CLT MTDD
--- NOTE | 2019-02-13 08:13 | PT PLAN OF CARE ---
Physician: FELICITY Rios Patient is being seen: 2-3x/Week Therapist: Carla Edouard, PT, DPT, CLT Medical Diagnosis: Unsteadiness on feet Treatment Diagnosis: Abnormality of gait, History of falls, Decreased Balance Date of Onset: 12/12/18 Date of Initial Evaluation: 12/11/18 Date patient was last seen: 02/13/19 Number of treatments: 15 Number of cancellations/No shows: 1 INTERVENTIONS: Manual Therapy/STM/MET Strengthening/condition Ice/Heat Range of Motion Spinal Stabilization Ultrasound Stretching Iontophoresis Neuromuscular Re-ed Closed Chain Program Electrical Stim Posture/Body mechanics Gait Trg/Balance Trg Biofeedback Home Exercise Program Mech./Manual Traction Therapeutic Activities Pelvic Floor GOALS: In 3 weeks pt will be able to sheet combining operator tandem stance B EO at 30 seconds for improved static balance with ADL's. MET In 6 weeks pt will be able to stand SLS EO on B LE for 10 seconds for ADL's such as putting on shoes or pants and daily ambulation. MET In 6 weeks pt will improve LE strength as tested by MMT to 4+/5 for all major muscle groups for improved function with ADL's. MET In 6 weeks pt will improve FGA score to 20/30 for improved function with ADL's. MET In 6 weeks pt will be able to walk up and down hills, on uneven terrain and tilted sidewalks without LOB episodes for improved function with ADL's and community ambulation. MET PATIENT'S GOAL: Be able to ride bike in the summer and hike and walk around town without falling. Status of Patient's Goals: 5/5 MET Patient Compliance: Good Prognosis: Good Reasons for discharge from therapy: Noah is to discharge from physical therapy at this time secondary to completion of 5/5 functional goals. Pt shows improved balance and stability with ambulation and static stance with increased attention to slowing down and being more aware of surroundings. Pt remains with occasional unsteadiness with uneven surfaces but is practicing strategies to maintain balance as well as will continue to improve independently. Noah is at this time independent with HEP and gym program to maintain gains in PT and will seek further PT at a later time if need be. Posture: Forward head posture with slight forward trunk lean with ambulation. Strength: LE MMT: Hip: flexion: B 5-/5, ext: B 4+/5, abd: B 5-/5, add: B 4+/5, knee: ext: B 4+/5, flexion: B 4+/5, DF: B 5/5, PF: L 5/5, R 5/5. Gait: Functional Gait Assessment (FGA): Balance: 4 Stage Balance Test: Eyes Open (EO): tandem: L 30 sec, R 30 sec, SLS: L 19 sec, R 11 sec. If you have any questions or concerns, please feel free to contact me at [phone]. Thank you, Carla Edouard, PT, DPT, CLT MTDD
== END 2019-02-13 18:00 | disposition home or self-care (01) ==
LOC: PT 07:00
PROVIDERS: ATTEND Family Medicine
DX: R26.81 Unsteadiness on feet (principal); R26.89 Other abnormalities of gait and mobility; R29.6 Repeated falls
CPT/HCPCS: 97161

== ENCOUNTER 2019-03-02 05:18 | Emergency (ER) | payer MEDICARE, OTHER ==
--- NOTE | 2019-03-02 05:29 | ER Report ---
History and Physical Time Seen By MD: 05:29 Hx. of Stated Complaint: PT REPORTS WAKING FEELING LIKE HE COULDN'T BREATH. PT REPORTS TONGUE WAS SWELLING SO HE USED EPIPEN 1 HOUR AGO AND TOOK 2 BENADRYL AT HOME BEFORE COMING. (LAURA VAUGHAN MD) Time Seen By MD: 07:09 (ELLIE LEWIS DO) HPI/ROS CHIEF COMPLAINT: tongue swelling HISTORY OF PRESENT ILLNESS: This is a 68 year old male. He has had history of angioedema in the past. Uncertian etiology. Ironically, he was traveling to [place] this morning to see his dermatology nurse, and had onset of swelling. Pulled over and took his epinephrine and 2 benadryl. He is feeling a little better, but wanted to come into the ER to be safe. He is still having mild trouble swallowing. No trouble breathing. (LAURA VAUGHAN MD) HPI/ROS Please see Dr. Vaughan note (ELLIE LEWIS DO) Allergies: Coded Allergies: Iodinated Contrast- Oral and IV Dye (Unverified Allergy, Severe, SWELLING, EXTREME HAYFEVER SYMPTOMS, 03/02/19) codeine (Verified Allergy, Severe, 03/02/19) homeopathic drugs (Verified Allergy, Intermediate, 03/02/19) ofloxacin (Verified Allergy, Mild, DIZZY, 03/02/19) Uncoded Allergies: hayfever (Allergy, Intermediate, UNKNOWN, 03/19/12) Home Meds Active Scripts Prednisone (PREDNISONE) 50 Mg Tablet, 50 MG PO QDAY for 4 Days, #4 TAB Prov:ELLIE LEWIS DO 03/02/19 Hydrocortisone (HYDROCORTISONE) 20 Mg Tablet, 20 MG PO BID for 30 Days, #60 TAB 1 Refill Take one tablet twice a day until follow up with primary care provider or dermatology nurse. May then resume 1 Tablet in AM and 1/2 tablet in afternoon if they are in agreement. Prov:PHUONG GRAY MD 11/20/18 Reported Medications Mineral Oil/Petrolatum,White (ARTIFICIAL TEARS EYE OINT) 3.5 Gm Oint...g., 3.5 GM OD QPM 11/20/18 Dextran 70/Hypromellose/Pf (ARTIFICIAL TEARS DROPS) 1 Each Droperette, 1 DROP OD QAM 11/20/18 Testosterone (Testosterone) 5 Gm Gel.packet, 10 GM TOP QDAY 2 pumps each thigh everyday 11/20/18 Lamotrigine (LAMOTRIGINE) 100 Mg Tablet, 100 MG PO QDAY 11/20/18 Cholecalciferol (Vitamin D3) (Vitamin D-3) 2,000 Unit Tablet, 2000 MG PO QDAY 11/20/18 Oxygen (OXYGEN) Inha, 3 L INH, L 3 L into CPAP at night 11/19/18 Magnesium (MAGNESIUM) 250 Mg Tablet, 500 MG PO DAILY 04/19/14 Multivitamin W/Iron, Minerals (MULTIVITAMINS WITH IRON) 1 Each Tab.chew, 1 EACH PO DAILY, TAB.CHEW 04/19/14 Ascorbic Acid (VITAMIN C) 500 Mg Tablet, 500 MG PO DAILY 04/19/14 Citalopram Hydrobromide (Citalopram Hbr) 20 Mg Tablet, 20 MG PO QDAY 12/07/12 Levothyroxine Sodium (Synthroid/Levothroid) 0.137 Mg Tab, 0.137 MG PO QDAY 12/07/12 Pantoprazole Sod (Protonix) 40 Mg Tabec, 40 MG PO QDAY, 0 Refills 01/27/09 Discontinued Reported Medications Hydrochlorothiazide (HYDROCHLOROTHIAZIDE) 12.5 Mg Tablet, 1 TAB PO QDAY TAKE ONE TABLET BY MOUTH EVERY DAY 04/19/14 Discontinued Scripts Famotidine (FAMOTIDINE) 20 Mg Tablet, 20 MG PO BID for 14 Days, #28 TAB 1 Refill Prov:PHUONG GRAY MD 11/20/18 Cetirizine Hcl (ALL DAY ALLERGY) 10 Mg Tablet, 10 MG PO QDAY for 14 Days, #14 TAB 1 Refill Prov:PHUONG GRAY MD 11/20/18 Reviewed Nurses Notes: Yes (LAURA VAUGHAN MD) Hx Smoking: Yes (7 year stopped in 1984) Smoking Status: Former Smoker Exposure to Second Hand Smoke?: No Hx Substance Use Disorder: No Hx Alcohol Use: No (LAURA VAUGHAN MD) Constitutional Vital Sign - Last 24 Hours 03/02/19 03/02/19 03/02/19 03/02/19 05:22 05:23 05:33 05:48 Temp 98.2 Pulse 88 80 79 Resp 20 B/P (MAP) 127/82 127/82 (97) Pulse Ox 89 93 87 O2 Delivery Room Air 03/02/19 03/02/19 03/02/19 03/02/19 06:03 06:08 06:38 06:53 Pulse 72 72 67 69 Pulse Ox 89 91 93 (ELLIE LEWIS DO) Physical Exam General Appearance: The patient is alert, has no immediate need for airway protection and no current signs of toxicity. Eyes: Pupils equal and round no injection. ENT: Normal oral mucosa. Mucous membranes are dry. Normal posterior oropharynx without obvious swelling. No swelling of lips or tongue or uvula. Neck: Neck is supple and non tender. Respiratory: Breathing easily, clear Cardiac: regular rate and rhythm Skin: No rashes or lesions. DIFFERENTIAL DIAGNOSIS: After history and physical exam differential diagnosis was considered for angioedema of uncertain cause, improving with epinephrine and Benadryl. We'll add and Solu-Medrol and Pepcid at this time and observe. (LAURA VAUGHAN MD) Physical Exam Please see Dr. Vaughan note (ELLIE LEWIS DO) Medical Decision Making ED Course/Re-evaluation ED Course I assumed patient care from Dr. Vaughan at shift change at 7:00. I examined the patient shortly after assuming care and patient was breathing comfortably, clearing secretions, noted significant improvement in symptoms. Patient does have 2 epi-pens leftover which are not . Patient was given a prescription for prednisone 50 mg to be taken for the next 4 days. Patient was stable at time of discharge. Return for cautions provided. Decision to Disposition Date: March 02, 2019 Decision to Disposition Time: 07:38 (ELLIE LEWIS DO) Depart Departure Latest Vital Signs Vital Signs Date Time Temp Pulse Resp B/P (MAP) Pulse Ox O2 Delivery O2 Flow Rate FiO2 03/02/19 06:53 69 93 03/02/19 05:23 127/82 (97) 03/02/19 05:22 98.2 20 Room Air (ELLIE LEWIS DO) Impression: Primary Impression: Angioedema Condition: Improved Disposition: HOME OR SELF-CARE Referrals: DESTINEE MORENO DO (PCP) New Scripts Prednisone (PREDNISONE) 50 Mg Tablet 50 MG PO QDAY for 4 Days, #4 TAB Prov: ELLIE LEWIS DO 03/02/19 Patient Instructions: General Allergic Reaction (ED) Additional Instructions: Please drink plenty of water. Please follow-up with your family doctor in the next 24-48 hours. Please return promptly if you develop recurrent symptoms of swelling, difficulty swallowing, difficulty breathing, fevers, motor weakness. You were given a prescription for prednisone please take 50 mg daily for the next 4 days to help with inflammation. Please contact your allergen is to discuss further options. LAURA VAUGHAN MD March 02, 2019 05:29 ELLIE LEWIS DO March 02, 2019 07:10
[2019-03-02] MEDS ORDERED: methylPREDNIS SUCC 125 MG/2ML IVP ONE (05:45)
[2019-03-02] MEDS ORDERED: NS(*) 0.9% 1000 ML BAG 1,000 ML IV ONE (05:45)
[2019-03-02] MEDS ORDERED: FAMOTIDINE(*) 20MG/50ML PREMIX 50 ML IVPB ONE (05:45)
[2019-03-02] MEDS ORDERED: PRED50TA22 PO (07:41)
[2019-03-02 07:43] VITALS: BP 126/74
== END 2019-03-02 07:49 | disposition home or self-care (01) ==
LOC: ER 05:25
DX: T78.3XXA Angioneurotic edema, initial encounter (principal)
CPT/HCPCS: 96361; 96365; 96375; 99284; J2930; J3490; J7030